=== PATIENT | male | born 2000 | race African-American/Black ===

== ENCOUNTER 2023-09-25 13:53 | Emergency (ER) | payer MEDICAID, OTHER ==
[~2023-09-25] VITALS: Ht 180.3 cm; Wt 91.0 kg
[2023-09-25 14:03] VITALS: O2SAT 98
[2023-09-25 16:54] LABS: CLARITY URINE TURBID (CLEAR); COLOR URINE ORANGE (YELLOW); GLUCOSE URINE NEGATIVE (NEGATIVE); KETONES URINE NEGATIVE (NEGATIVE); LEUKOCYTE ESTERASE URINE 3+ (NEGATIVE); NITRITE URINE NEGATIVE (NEGATIVE); OCCULT BLOOD URINE 3+ (NEGATIVE); PH URINE 5.5 (4.5-8.0); PROTEIN URINE 3+ (NEGATIVE); SPECIFIC GRAVITY URINE 1.029 (1.005-1.030)
[2023-09-25 17:13] LABS: BACTERIA URINE 2+; RBC URINE TNTC /hpf (0-2); SQUAMOUS EPITHELIAL CELL URINE FEW /lpf (RARE/1+); WBC URINE TNTC /hpf (0-2)
[2023-09-25] MEDS ORDERED: CEFP200T13 MT (18:10)
[2023-09-25 18:23] VITALS: BP 132/87; PULSE 98; RESP 18; TEMP 98
[2023-09-28 04:12] LABS: CHLAMYDIA TRACHOMATIS NAA Negative (Negative); NEISSERIA GONORRHOEAE NAA Negative (Negative)
== END 2023-09-25 18:25 | disposition home or self-care (01) ==
LOC: ER 13:53
DX: N39.0 Urinary tract infection, site not specified (principal)
CPT/HCPCS: 76770; 81003; 87077; 87186; 87491; 87591; 99284